=== PATIENT | male | born 1975 | race Two or more races ===

== ENCOUNTER 2017-07-20 06:08 | Emergency (ER) | payer BC, OTHER ==
[~2017-07-20] VITALS: Ht 165.1 cm; Wt 111.1 kg
[~2017-07-20 06:08] MED LIST: ASPI-1152 PO; LOSA1TAB9 PO
--- NOTE | 2017-07-20 06:17 | NUR ---
PT BIBSELF, PT AMBULATORY TO ER BED 9 PT STATES "DIZZY LIKE THE ROOM IS SPINNING SINCE LAST NIGHT; WORSE AT 0500" PT AOX3 RR EVEN AND UNLABORED. NO SOB NOTED. NAD NOTED. NO NVD AT THIS TIME. PT NOT DIAPHORETIC. PT GOWNED AND PLACED ON MONITOR. DR. HAWKINS AT BEDSIDE FOR EVAL.
[2017-07-20] MEDS ORDERED: IV NS 0.9% 1,000 ML BAG IV ONE (06:30)
[2017-07-20] MEDS ORDERED: MECLIZINE HCL 12.5 MG TABLET PO ONE (06:30)
[2017-07-20] MEDS ORDERED: LABETALOL HCL IV 100MG VIAL IV ONE (06:30)
[2017-07-20] MEDS ORDERED: LABETALOL HCL (100MG) 100 MG TABLET PO ONE (06:30)
[2017-07-20] MEDS ORDERED: ONDANSETRON HCL/PF 4 MG/2 ML VIAL IVP ONE (06:30)
[2017-07-20] MEDS ORDERED: LABETALOL HCL (100MG) 100 MG TABLET ONE (06:31)
[2017-07-20] MEDS ORDERED: ONDANSETRON HCL/PF 4 MG/2 ML VIAL ONE (06:31)
[2017-07-20] MEDS ORDERED: LABETALOL HCL IV 100MG VIAL ONE (06:31)
[2017-07-20] MEDS ORDERED: MECLIZINE HCL 25 MG TABLET ONE (06:32)
[2017-07-20 06:53] LABS: CALCIUM, SERUM 8.2 mg/dL (8.5-10.1); CARBON DIOXIDE 21 mmol/L (21-32); CHLORIDE 106 mmol/L (98-107); CREATININE 0.8 mg/dL (0.6-1.3); GLUCOSE 146 mg/dL (74-106); POTASSIUM 3.7 mmol/L (3.5-5.1); SODIUM SERUM 139 mmol/L (136-145); UREA NITROGEN, BLOOD 21 mg/dL (7-18)
--- NOTE | 2017-07-20 06:55 | NUR ---
PT TO CT.
[2017-07-20 06:58] LABS: ALANINE AMINOTRANSFERASE 41 U/L (12-78); ALBUMIN 3.4 g/dL (3.4-5.0); ALKALINE PHOSPHATASE 123 U/L (46-116); ASPARTATE AMINOTRANSFERASE 15 U/L (15-37); BILIRUBIN,TOTAL 0.3 mg/dL (0.2-1.0); TOTAL PROTEIN, SERUM 6.9 g/dL (6.4-8.2)
[2017-07-20 07:00] LABS: BASOPHILS % (AUTO) 0.6 % (0.0-2.0); HEMATOCRIT 43 % (39-51); HEMOGLOBIN 14.7 g/dL (13.5-17.5); LYMPHOCYTES # (AUTO) 2.3 /CMM (0.8-4.8); LYMPHOCYTES % (AUTO) 29.5 % (20.0-44.0); MEAN CORPUSCULAR HGB CONC 35 g/dl (31.0-36.0); MEAN CORPUSCULAR VOLUME 85 fL (80-96); MONOCYTES # (AUTO) 0.5 /CMM (0.1-1.30); MONOCYTES % (AUTO) 6.9 % (2.0-12.0); NEUTROPHILS # (AUTO) 4.6 /CMM (1.8-8.9); PLATELET COUNT (AUTO) 207 /CMM (150-450); RDW COEFFICIENT OF VARIATION 14.2 (11.5-15.0); RED BLOOD CELL COUNT(AUTO) 5.05 MIL/uL (4.5-6.0); TROPONIN I < 0.017 ng/mL (0.00-0.056); WHITE BLOOD COUNT (AUTO) 7.7 K/uL (4.3-11.0)
--- NOTE | 2017-07-20 07:00 | NUR ---
REPORT GIVEN TO SAMANTHA HALL FOR NOHEMY. PT IN CT AT THIS TIME.
--- NOTE | 2017-07-20 07:00 | NUR ---
RECEIVED REPORT FOR NOHEMY.
[2017-07-20 07:06] LABS: INR 0.96 (0.87-1.13)
--- NOTE | 2017-07-20 07:08 | NUR ---
PT RETURNED FROM CT.
[2017-07-20 07:58] VITALS: BP 126/77
--- NOTE | 2017-07-20 07:59 | NUR ---
IV removed. Catheter intact and site benign. Pressure and 4x4 applied to site. No bleeding noted. Patient discharged to home in stable condition. Written and verbal after care instructions given. Patient verbalizes understanding of instruction.
== END 2017-07-20 07:59 | disposition home or self-care (01) ==
LOC: ER 06:09
DX: R42 Dizziness and giddiness (principal); I10 Essential (primary) hypertension; Z79.82 Long term (current) use of aspirin
CPT/HCPCS: 36415; 70450-TC; 71045-TC; 80048-TC; 80076-TC; 84484-TC; 85025-TC; 85730-TC; A4606; J2405; J3490; J7030; J8597; Z7610

== ENCOUNTER 2018-03-29 15:02 | Emergency (ER) | payer BC, OTHER ==
[~2018-03-29] VITALS: Ht 165.1 cm; Wt 110.7 kg
--- NOTE | 2018-03-29 15:20 | NUR ---
PT PRESENTED TO THE ER WITH A C/O RT BACK AND LLE PAIN S/P SLIP AND FALL AT WORK. PT DENIES KO AT THIS TIME.
[2018-03-29] MEDS ORDERED: KETOROLAC TROMETHAMINE INJ 60 MG/2 ML VIAL IM ONE (15:30)
[2018-03-29] MEDS ORDERED: KETOROLAC TROMETHAMINE INJ 30 MG/ML VIAL ONE (15:39)
--- NOTE | 2018-03-29 15:42 | NUR ---
PT IS IN RADIOLOGY
--- NOTE | 2018-03-29 16:06 | NUR ---
Merna funk in [facility] - 03/29/18 at 1607 by ADAM PT'S MOTHER IS AT THE BEDSIDE.
--- NOTE | 2018-03-29 16:14 | NUR ---
PT IS REC'ING A CAM WALKER BOOT, PER DR. SKELTON. DR SKELTON IS SPEAKING TO THE PT.
[2018-03-29 16:36] VITALS: BP 134/93
== END 2018-03-29 16:37 | disposition home or self-care (01) ==
LOC: ER 15:11
DX: S92.412A Displaced fracture of proximal phalanx of left great toe, initial encounter for closed fracture (principal); S43.491A Other sprain of right shoulder joint, initial encounter; S80.212A Abrasion, left knee, initial encounter; I10 Essential (primary) hypertension; F10.10 Alcohol abuse, uncomplicated; Y90.9 Presence of alcohol in blood, level not specified; Z79.82 Long term (current) use of aspirin; W01.0XXA Fall on same level from slipping, tripping and stumbling without subsequent striking against object, initial encounter; Y93.89 Activity, other specified; Y92.89 Other specified places as the place of occurrence of the external cause; Y99.8 Other external cause status
CPT/HCPCS: 71045-TC; 73560-TC; 73630-TC; J1885

== ENCOUNTER 2018-11-21 09:20 | Outpatient (CLI) | payer BC | END 2018-11-21 23:59 | disposition home or self-care (01) | LOC: MRI 09:20 | PROVIDERS: ATTEND Legal Medicine | DX: S83.242A Other tear of medial meniscus, current injury, left knee, initial encounter (principal); M17.12 Unilateral primary osteoarthritis, left knee; I10 Essential (primary) hypertension; X58.XXXA Exposure to other specified factors, initial encounter; Y93.89 Activity, other specified; Y92.89 Other specified places as the place of occurrence of the external cause; Y99.8 Other external cause status | CPT/HCPCS: 73721-TC ==

== ENCOUNTER 2020-12-24 08:34 | Outpatient (CLI) | payer BC ==
[~2020-12-24 08:34] MED LIST changes: -ASPI-1152 PO; +ASPI-1420 PO
[2020-12-24 09:29] LABS: BASOPHILS # (AUTO) 0.1 K/uL (0.0-0.2); BASOPHILS % (AUTO) 0.7 % (0.0-2.0); EOSINOPHILS % (AUTO) 2.7 % (0.0-6.0); HEMATOCRIT 47 % (39-51); HEMOGLOBIN 15.8 g/dL (13.5-17.5); LYMPHOCYTES # (AUTO) 2.8 K/uL (0.8-4.8); MEAN CORPUSCULAR HGB CONC 34 g/dl (31.0-36.0); MEAN CORPUSCULAR VOLUME 89 fL (80-96); MONOCYTES # (AUTO) 0.6 K/uL (0.1-1.30); MONOCYTES % (AUTO) 6.1 % (2.0-12.0); NEUTROPHILS # (AUTO) 5.4 K/uL (1.8-8.9); NEUTROPHILS % (AUTO) 59.5 % (43.0-81.0); PLATELET COUNT (AUTO) 221 K/uL (150-450); RED BLOOD CELL COUNT(AUTO) 5.26 MIL/uL (4.5-6.0); WHITE BLOOD COUNT (AUTO) 9.2 K/uL (4.3-11.0)
[2020-12-24 09:40] LABS: BILIRUBIN,URINE NEGATIVE (NEGATIVE); COLOR,URINE YELLOW (YELLOW); LEUKOCYTE ESTERASE ,URINE NEGATIVE (NEGATIVE); NITRITE, URINE NEGATIVE (NEGATIVE); PROTEIN,URINE NEGATIVE (NEGATIVE); UGLUCOSE NEGATIVE (NEGATIVE); UROBILINOGEN,URINE 0.2 EU/dL (0.2)
[2020-12-24 10:33] LABS: FREE T4 (FREE THYROXINE) 1.06 ng/dL (0.76-1.46); THYROID STIMULATING HORMONE 0.896 uIU/mL (0.358-3.74); URIC ACID 9.2 mg/dL (2.6-7.2)
[2020-12-24 10:44] LABS: ALBUMIN 3.8 g/dL (3.4-5.0); BILIRUBIN,TOTAL 0.7 mg/dL (0.2-1.0); CALCIUM, SERUM 8.9 mg/dL (8.5-10.1); CREATININE 0.9 mg/dL (0.6-1.3); POTASSIUM 3.8 mmol/L (3.5-5.1); TOTAL PROTEIN, SERUM 7.7 g/dL (6.4-8.2)
== END 2020-12-24 23:59 | disposition home or self-care (01) ==
LOC: LAB 08:34
PROVIDERS: ATTEND Legal Medicine
DX: I10 Essential (primary) hypertension (principal); E11.9 Type 2 diabetes mellitus without complications; E55.9 Vitamin D deficiency, unspecified; E78.5 Hyperlipidemia, unspecified; E03.9 Hypothyroidism, unspecified; D64.9 Anemia, unspecified; Z00.00 Encounter for general adult medical examination without abnormal findings
CPT/HCPCS: 36415; 80053-TC; 80061-TC; 82306; 82607-TC; 82728-TC; 83540-TC; 84402; 84403; 84439-TC; 84443-TC; 84550-TC; 85025-TC

== ENCOUNTER 2021-02-27 20:29 | Emergency (ER) | payer BC ==
[~2021-02-27] VITALS: Ht 167.6 cm; Wt 93.0 kg
[2021-02-27 20:35] VITALS: BP 141/77
[2021-02-27] MEDS ORDERED: ACET-2605 PO (20:44)
--- NOTE | 2021-02-27 21:25 | NUR ---
Patient discharged to home in stable condition. Written and verbal after care instructions given. Patient verbalizes understanding of instruction. Pt ambulatory with a steady gait
== END 2021-02-27 21:25 | disposition home or self-care (01) ==
LOC: ER 20:30
DX: B34.9 Viral infection, unspecified (principal); Z20.822 Contact with and (suspected) exposure to COVID-19; I10 Essential (primary) hypertension; Z79.82 Long term (current) use of aspirin; Z79.899 Other long term (current) drug therapy
CPT/HCPCS: 87426; 87804 ×2; 99283; C9803; U0003

== ENCOUNTER 2021-05-30 15:28 | Emergency (ER) | payer BC, OTHER ==
[~2021-05-30] VITALS: Ht 165.1 cm; Wt 104.3 kg
[~2021-05-30 15:28] MED LIST changes: +ACET-2605 PO
--- NOTE | 2021-05-30 15:30 | NUR ---
BIB C/O SYNCOPAL EPISODE AFTER RUNNING. "AFTER RUNNING HE FELT LIGHTHEADED AND PASSED OUT." PLACED COMFORTABLY IN BED. VITALS CHECKED
--- NOTE | 2021-05-30 15:40 | NUR ---
IV CANNULA G18 INSERTED ON LEFT AC. BLOOD DRAWN AND SENT TO LAB
--- NOTE | 2021-05-30 15:55 | NUR ---
EKG DONE AT BEDSIDE. BLOOD GLUCOSE LEVEL OF 121mg
[2021-05-30 16:01] LABS: BASOPHILS # (AUTO) 0.1 K/uL (0.0-0.2); BASOPHILS % (AUTO) 0.7 % (0.0-2.0); EOSINOPHILS % (AUTO) 0.7 % (0.0-6.0); HEMATOCRIT 48 % (39-51); HEMOGLOBIN 16.3 g/dL (13.5-17.5); LYMPHOCYTES # (AUTO) 1.7 K/uL (0.8-4.8); LYMPHOCYTES % (AUTO) 13.5 % (20.0-44.0); MEAN CORPUSCULAR HGB CONC 34 g/dl (31.0-36.0); MEAN CORPUSCULAR VOLUME 87 fL (80-96); MONOCYTES # (AUTO) 0.7 K/uL (0.1-1.30); MONOCYTES % (AUTO) 5.8 % (2.0-12.0); NEUTROPHILS # (AUTO) 9.8 K/uL (1.8-8.9); NEUTROPHILS % (AUTO) 79.3 % (43.0-81.0); PLATELET COUNT (AUTO) 257 K/uL (150-450); RED BLOOD CELL COUNT(AUTO) 5.53 MIL/uL (4.5-6.0); WHITE BLOOD COUNT (AUTO) 12.3 K/uL (4.3-11.0)
[2021-05-30 16:24] LABS: ALANINE AMINOTRANSFERASE 34 U/L (12-78); ALBUMIN 4.2 g/dL (3.4-5.0); ALKALINE PHOSPHATASE 116 U/L (46-116); ASPARTATE AMINOTRANSFERASE 21 U/L (15-37); BILIRUBIN,DIRECT 0.2 mg/dL (0.0-0.2); BILIRUBIN,TOTAL 0.9 mg/dL (0.2-1.0); CALCIUM, SERUM 9.2 mg/dL (8.5-10.1); CARBON DIOXIDE 25 mmol/L (21-32); CHLORIDE 100 mmol/L (98-107); CREATININE 1.8 mg/dL (0.6-1.3); GLUCOSE 131 mg/dL (74-106); POTASSIUM 3.8 mmol/L (3.5-5.1); SODIUM SERUM 134 mmol/L (136-145); TOTAL PROTEIN, SERUM 7.9 g/dL (6.4-8.2); UREA NITROGEN, BLOOD 32 mg/dL (7-18)
[2021-05-30] MEDS ORDERED: IV NS 0.9% 1,000 ML BAG IV ONE (17:00)
--- NOTE | 2021-05-30 18:01 | NUR ---
IV CANNULA REMOVED
--- NOTE | 2021-05-30 18:02 | NUR ---
Patient discharged to home in stable condition. Written and verbal after care instructions given. Patient verbalizes understanding of instruction.
[2021-05-30 18:03] VITALS: BP 134/83
== END 2021-05-30 18:04 | disposition home or self-care (01) ==
LOC: ER 15:32
DX: E86.0 Dehydration (principal); N28.9 Disorder of kidney and ureter, unspecified; R55 Syncope and collapse; I10 Essential (primary) hypertension; Z79.899 Other long term (current) drug therapy
CPT/HCPCS: 36415; 70450; 71045; 80048; 80076; 82962; 84484; 85025; 85730; 93005 ×2; 96360; 99285; J7030

== ENCOUNTER 2021-10-22 11:14 | Inpatient (IN) | payer BC, OTHER ==
[~2021-10-22] VITALS: Ht 165.1 cm; Wt 114.8 kg
[~2021-10-22 11:14] MED LIST changes: -ACET-2605 PO; -ASPI-1420 PO
--- NOTE | 2021-10-22 11:36 | NUR ---
CAME IN FOR SOB AND CHEST DISCOMFORT X 3 DAYS, SOB WORST TODAY, ALSO C/O BLE WEAKNESS. TO ERBED 4, HOOKED TO MONITOR, CHANGED TO HOSP GOWN, WARM BLANKET PROVIDED. PATIENT AAOx 4. BREATHING EVEN AND UNLABORED. AWAITING MD MORENO
--- NOTE | 2021-10-22 12:14 | NUR ---
DR CHILEL AT BEDSIDE
--- NOTE | 2021-10-22 12:30 | NUR ---
RAPID COVID SWAB DONE AND SENT TO LAB
[2021-10-22 12:51] LABS: CALCIUM, SERUM 8.5 mg/dL (8.5-10.1); CARBON DIOXIDE 26 mmol/L (21-32); CHLORIDE 99 mmol/L (98-107); CREATININE 0.8 mg/dL (0.6-1.3); GLUCOSE 142 mg/dL (74-106); SODIUM SERUM 136 mmol/L (136-145); UREA NITROGEN, BLOOD 25 mg/dL (7-18)
[2021-10-22 12:59] LABS: BASOPHILS # (AUTO) 0.1 K/uL (0.0-0.2); BASOPHILS % (AUTO) 0.5 % (0.0-2.0); EOSINOPHILS % (AUTO) 0.2 % (0.0-6.0); HEMATOCRIT 48 % (39-51); HEMOGLOBIN 16.2 g/dL (13.5-17.5); LYMPHOCYTES # (AUTO) 1.8 K/uL (0.8-4.8); MEAN CORPUSCULAR HGB CONC 33 g/dl (31.0-36.0); MEAN CORPUSCULAR VOLUME 87 fL (80-96); MONOCYTES # (AUTO) 1.1 K/uL (0.1-1.30); MONOCYTES % (AUTO) 7.3 % (2.0-12.0); PLATELET COUNT (AUTO) 232 K/uL (150-450); RED BLOOD CELL COUNT(AUTO) 5.53 MIL/uL (4.5-6.0)
[2021-10-22 13:06] LABS: ALANINE AMINOTRANSFERASE 104 U/L (12-78); ALBUMIN 3.5 g/dL (3.4-5.0); ALKALINE PHOSPHATASE 133 U/L (46-116); ASPARTATE AMINOTRANSFERASE 23 U/L (15-37); BILIRUBIN,DIRECT 0.1 mg/dL (0.0-0.2); BILIRUBIN,TOTAL 0.5 mg/dL (0.2-1.0); TOTAL PROTEIN, SERUM 7.1 g/dL (6.4-8.2)
[2021-10-22] MEDS ORDERED: IV NS 0.9% 1,000 ML IV ONE (14:00)
--- NOTE | 2021-10-22 14:59 | NUR ---
CONTACTED DR. ZHOU TO CALL US BACK.
--- NOTE | 2021-10-22 15:40 | NUR ---
CALLED DR. ZHOU [phone] ZHOU PAGED.
[2021-10-22] MEDS ORDERED: ENOXAPARIN SODIUM 40 MG/0.4 ML DISP.SYRIN SQ SCH (17:00)
[2021-10-22] MEDS ORDERED: IV NS 0.9% 1,000 ML IV PRN (17:00)
[2021-10-22] MEDS ORDERED: ASPIRIN EC 81 MG TABLET.DR PO ONE (17:00)
[2021-10-22] MEDS ORDERED: ONDANSETRON HCL/PF 4 MG/2 ML VIAL IVP PRN (17:00)
[2021-10-22] MEDS ORDERED: NITROGLYCERIN PACKET 1 GM PACKET TOP ONE (17:00)
[2021-10-22] MEDS ORDERED: ACETAMINOPHEN 325 MG TABLET PO PRN (17:00)
[2021-10-22] MEDS ORDERED: MAG HYDROX/AL HYDROX/SIMETH 30 ML UDC PO PRN (17:00)
[2021-10-22] MEDS ORDERED: MORPHINE SULFATE INJ 2 MG/ML DISP.SYRIN IV PRN (17:00)
[2021-10-22] MEDS ORDERED: ENOXAPARIN SODIUM 40 MG/0.4 ML DISP.SYRIN SQ ONE (17:13)
[2021-10-22] MEDS ORDERED: NITROGLYCERIN PACKET 1 GM PACKET ONE (17:14)
[2021-10-22] MEDS ORDERED: ASPIRIN 81 MG TAB.CHEW ONE (17:14)
--- NOTE | 2021-10-22 19:34 | NUR ---
ENDORSEMENT GIVEN TO ANA SINGH FOR CONTINUITY OF CARE
--- NOTE | 2021-10-22 19:44 | NUR ---
ROOM 110
--- NOTE | 2021-10-22 20:19 | NUR ---
REPORT GIVEN TO CHERRY WALTERS RN FOR NOHEMY
--- NOTE | 2021-10-22 20:25 | NUR ---
[employer] NOTES RECEIVED PTS FROM ER VIA STRETCHER , REPORT GIVEN BY SAMANTHA AMANDA, PTS ON R/A SATING 96% NO SOB NO DISTRESS NOTED ,ADMITTED WITH CHEST PAIN , ON TELE MONITOR SR -90 , BODY CHECK DONE NO SKIN ISSUE NOTED . PTS ON IV HEPLOCK LEFT AC G#20 INTACT PATENT.IVF OF NS AT 75 CC/HR TOLERATING WELL . DUE MEDS GIVEN ORDERED . WILL CONTINUE TO MONITOR PTS.
--- NOTE | 2021-10-22 20:37 | NUR ---
PT TRANSFERRED TO [facility] VIA ACLS PROTOCOL. VSS.
[2021-10-22 20:59] VITALS: BP 130/80
[2021-10-22] MEDS ORDERED: ZOLPIDEM TARTRATE 5 MG TABLET PO PRN (22:00)
[2021-10-22] MEDS ORDERED: ATORVASTATIN 40 MG TABLET PO SCH (22:00)
[2021-10-22] MEDS ORDERED: MAGNESIUM HYDROXIDE 30 ML UDC PO PRN (22:00)
[2021-10-23] VITALS: BP 125/72
[2021-10-23 04:00] VITALS: BP 122/82
--- NOTE | 2021-10-23 06:48 | NUR ---
METAL TURNER NOTESMS RN CLOSING NOTE PATIENT REMAINS IN BED AWAKE, ALERT, ORIENTED X 4. V/S STABLE AFEBRILE ON R/A SATING 98% . NO SOB ,NO RESPIRATORY DISTRESS NOTED. NO C/O CHEST PAIN NOTED .ON IV FLUID OF NS @ 75 ML/HR, NO INFILTRATION NOTED FLUID INFUSING WELL HOB KEPT ELEVATED. BED LOCKED AND IN LOWEST POSITION. CALL LIGHT WITHIN REACH. WILL ENDORSE TO RN DAY SHIFT FOR CONTINUITY OF CARE.
[2021-10-23 07:24] LABS: BASOPHILS # (AUTO) 0.1 K/uL (0.0-0.2); BASOPHILS % (AUTO) 0.8 % (0.0-2.0); EOSINOPHILS % (AUTO) 0.8 % (0.0-6.0); HEMATOCRIT 44 % (39-51); HEMOGLOBIN 14.5 g/dL (13.5-17.5); LYMPHOCYTES # (AUTO) 3.6 K/uL (0.8-4.8); LYMPHOCYTES % (AUTO) 29.2 % (20.0-44.0); MEAN CORPUSCULAR HGB CONC 33 g/dl (31.0-36.0); MEAN CORPUSCULAR VOLUME 89 fL (80-96); MONOCYTES # (AUTO) 0.9 K/uL (0.1-1.30); NEUTROPHILS # (AUTO) 7.6 K/uL (1.8-8.9); NEUTROPHILS % (AUTO) 62.2 % (43.0-81.0); PLATELET COUNT (AUTO) 179 K/uL (150-450); RED BLOOD CELL COUNT(AUTO) 4.92 MIL/uL (4.5-6.0); WHITE BLOOD COUNT (AUTO) 12.2 K/uL (4.3-11.0)
--- NOTE | 2021-10-23 07:24 | NUR ---
RN OPENING NOTE RECEIVED PATIENT RESTING IN BED AWAKE, ALERT, ORIENTED X 4. ON R/A . NO SOB ,NO RESPIRATORY DISTRESS NOTED. NO C/O CHEST PAIN NOTED .ON IV FLUID OF NS @ 75 ML/HR, NO INFILTRATION NOTED FLUID INFUSING WELL HOB KEPT ELEVATED. BED LOCKED AND IN LOWEST POSITION. CALL LIGHT WITHIN REACH.
[2021-10-23] MEDS ORDERED: PANTOPRAZOLE 40 MG TABLET.DR PO SCH (07:30)
[2021-10-23 08:00] VITALS: BP 150/80
[2021-10-23 08:22] LABS: THYROID STIMULATING HORMONE 2.22 uIU/mL (0.358-3.74)
[2021-10-23 08:25] LABS: CREATININE 0.8 mg/dL (0.6-1.3); MAGNESIUM 2.1 mg/dL (1.8-2.4); PHOSPHORUS 3.8 mg/dL (2.5-4.9); POTASSIUM 3.9 mmol/L (3.5-5.1)
[2021-10-23] MEDS ORDERED: HYDROCHLOROTHIAZIDE 25 MG TABLET PO SCH (09:00)
[2021-10-23] MEDS ORDERED: LOSARTAN POTASSIUM 50 MG TABLET PO SCH (09:00)
[2021-10-23 12:00] VITALS: BP 170/97
--- NOTE | 2021-10-23 12:30 | NUR ---
RN NOTE BP NOTED TO BE ELEVATED RECHECKED INFORMED DR ZHOU RECEIVED PRN HYDRALAZINE ORDER. ORDERS FOLLOWED
[2021-10-23] MEDS ORDERED: hydrALAZINE HCL IV 20 MG VIAL IV PRN (13:00)
[2021-10-23] MEDS ORDERED: AMLODIPINE BESYLATE 5 MG TABLET PO SCH (14:00)
[2021-10-23] MEDS ORDERED: AMLO-212 PO (14:15)
[2021-10-23 14:30] VITALS: BP 149/89
--- NOTE | 2021-10-23 15:46 | NUR ---
RN NOTE PATIENT DC. DC INSTRUCTION GIVEN TO PATIENT PT IS TO RETURN ON 10/25/2021 FOR ANGIO CATH AT 1100 RX GIVEN TO PATIENT, PATIENT REMINDED TO BE NPO MIDNIGHT OF 10/24/2021. PATIENT ACCOMPANIED BY . NO FURTHER QUESTIONS
== END 2021-10-23 15:50 | disposition home or self-care (01) | DRG 305 ==
LOC: ER 11:17 → TRANSITION 18:38 → TELE1 20:06
PROVIDERS: ADMIT Legal Medicine; ATTEND Legal Medicine
DX: I16.9 Hypertensive crisis, unspecified (principal); Z68.41 Body mass index [BMI] 40.0-44.9, adult; R07.9 Chest pain, unspecified; E66.01 Morbid (severe) obesity due to excess calories; G47.33 Obstructive sleep apnea (adult) (pediatric); R74.01 Elevation of levels of liver transaminase levels; R74.8 Abnormal levels of other serum enzymes; I10 Essential (primary) hypertension; Z20.822 Contact with and (suspected) exposure to COVID-19; Z91.14 Patient's other noncompliance with medication regimen; I25.10 Atherosclerotic heart disease of native coronary artery without angina pectoris
CPT/HCPCS: 36415; 71045-TC; 76700-TC; 80048-TC; 80061-TC; 80076-TC; 83735-TC; 83880; 84100-TC; 84443-TC; 84484-TC; 85025-TC; 87081-TC; 93307-TC; C9803; G0378; J0360; J1650; J7030

== ENCOUNTER 2021-10-25 13:44 | Outpatient (CLI) | payer BC, OTHER ==
[~2021-10-25] VITALS: Ht 157.5 cm; Wt 113.4 kg
[~2021-10-25 13:44] MED LIST changes: +AMLO-212 PO
[2021-10-25] MEDS ORDERED: IV NS 0.9% 250 ML IV ONE (13:55)
[2021-10-25] MEDS ORDERED: IOHEXOL-350 100 ML VIAL IV ONE (13:55)
[2021-10-25] MEDS: METOPROLOL TARTRATE INJ 5 MG/5 ML AMPUL IVP PRN ×10 (14:05→14:50)
[2021-10-25] MEDS ORDERED: METOPROLOL TARTRATE INJ 5 MG/5 ML AMPUL ONE ×2 (14:11→14:26)
[2021-10-25] MEDS ORDERED: NITROGLYCERIN 0.4 MG/TAB BOTTLE SL ONE (14:30)
[2021-10-25 14:50] VITALS: BP 138/74
--- NOTE | 2021-10-25 14:55 | NUR ---
DC IV, gauze applied to site, Patient discharged in stable condition, patient verbalized understanding of the discharge instruction.
== END 2021-10-25 23:59 | disposition home or self-care (01) ==
LOC: CT 13:44
PROVIDERS: ATTEND Legal Medicine
DX: I10 Essential (primary) hypertension (principal)
CPT/HCPCS: 75574; J3490 ×2; J7050; Q9967

== ENCOUNTER 2021-10-28 22:06 | Emergency (ER) | payer BC, OTHER ==
[~2021-10-28] VITALS: Ht 165.1 cm; Wt 113.4 kg
--- NOTE | 2021-10-28 22:15 | NUR ---
TO ER BED 4. BIBFAMILY. C/O DIFFICULTY BREATHING, FEELS TIGHT. REPORTS THICK PHLEGM. PT IS ALERT AND ORIENTED. RR EVEN AND NON LABORED. CONNECTED TO MONITOR. AWAITING MD MORENO
--- NOTE | 2021-10-29 01:21 | NUR ---
Patient discharged to home in stable condition. Written and verbal after care instructions given. Patient verbalizes understanding of instruction.
[2021-10-29 02:04] VITALS: BP 164/99
== END 2021-10-29 02:04 | disposition home or self-care (01) ==
LOC: ER 22:06
DX: R05.9 Cough, unspecified (principal); I10 Essential (primary) hypertension; Z79.899 Other long term (current) drug therapy
CPT/HCPCS: 71045-TC

== ENCOUNTER 2021-11-05 08:54 | Outpatient (CLI) | payer BC, OTHER | END 2021-11-05 23:59 | disposition home or self-care (01) | LOC: CT 08:54 | PROVIDERS: ATTEND Legal Medicine | DX: J32.0 Chronic maxillary sinusitis (principal); R22.1 Localized swelling, mass and lump, neck | CPT/HCPCS: 70490-TC ==

== ENCOUNTER 2021-11-22 08:50 | Outpatient (CLI) | payer BC, OTHER | END 2021-11-22 23:59 | disposition home or self-care (01) | LOC: RAD 08:50 | PROVIDERS: ATTEND Legal Medicine | DX: M13.861 Other specified arthritis, right knee (principal); M25.461 Effusion, right knee; M25.561 Pain in right knee | CPT/HCPCS: 73562 ==

== ENCOUNTER 2023-12-10 07:43 | Emergency (ER) | payer BC, OTHER ==
[~2023-12-10] VITALS: Ht 165.1 cm; Wt 99.8 kg
[2023-12-10] MEDS ORDERED: MORPHINE SULFATE INJ 4 MG/ML DISP.SYRIN ONE (08:06)
[2023-12-10] MEDS ORDERED: ONDANSETRON HCL/PF 4 MG/2 ML VIAL ONE (08:06)
[2023-12-10 08:09] LABS: APPEARANCE,URINE CLEAR (CLEAR); BILIRUBIN,URINE NEGATIVE (NEGATIVE); BLOOD, URINE NEGATIVE Ery/uL (NEGATIVE); COLOR,URINE YELLOW (YELLOW); KETONES,URINE NEGATIVE (NEGATIVE); LEUKOCYTE ESTERASE ,URINE NEGATIVE (NEGATIVE); NITRITE, URINE NEGATIVE (NEGATIVE); PROTEIN,URINE NEGATIVE (NEGATIVE); UGLUCOSE NEGATIVE (NEGATIVE); UROBILINOGEN,URINE 0.2 EU/dL (0.2)
[2023-12-10] MEDS: ONDANSETRON HCL/PF 4 MG/2 ML VIAL IVP ONE (08:10)
[2023-12-10] MEDS: MORPHINE SULFATE INJ 2 MG/ML DISP.SYRIN IV ONE (08:16)
[2023-12-10 08:25] LABS: BASOPHILS # (AUTO) 0.1 K/uL (0.0-0.2); BASOPHILS % (AUTO) 1.1 % (0.0-2.0); EOSINOPHILS # (AUTO) 0.3 K/uL (0.0-0.7); EOSINOPHILS % (AUTO) 3.2 % (0.0-6.0); HEMATOCRIT 45 % (39-51); HEMOGLOBIN 15.4 g/dL (13.5-17.5); LYMPHOCYTES # (AUTO) 2.5 K/uL (0.8-4.8); LYMPHOCYTES % (AUTO) 31.3 % (20.0-44.0); MEAN CORPUSCULAR HEMOGLOBIN 29 PG (26.0-33.0); MEAN CORPUSCULAR HGB CONC 34 g/dl (31.0-36.0); MEAN CORPUSCULAR VOLUME 85 fL (80-96); MONOCYTES # (AUTO) 0.5 K/uL (0.1-1.30); MONOCYTES % (AUTO) 5.8 % (2.0-12.0); NEUTROPHILS # (AUTO) 4.6 K/uL (1.8-8.9); NEUTROPHILS % (AUTO) 58.6 % (43.0-81.0); PLATELET COUNT (AUTO) 223 K/uL (150-450); RED BLOOD CELL COUNT(AUTO) 5.28 MIL/uL (4.5-6.0); RED CELL DISTRIBUTION WIDTH 14.4 % (11.5-15.0); WHITE BLOOD COUNT (AUTO) 7.9 K/uL (4.3-11.0)
[2023-12-10 08:33] LABS: CALCIUM, SERUM 8.6 mg/dL (8.5-10.1); CREATININE 0.9 mg/dL (0.6-1.3); POTASSIUM 4.2 mmol/L (3.5-5.1)
[2023-12-10 08:40] LABS: ALBUMIN 3.4 g/dL (3.4-5.0); BILIRUBIN,DIRECT 0.1 mg/dL (0.0-0.2); BILIRUBIN,TOTAL 0.3 mg/dL (0.2-1.0); TOTAL PROTEIN, SERUM 7.1 g/dL (6.4-8.2)
[2023-12-10] MEDS ORDERED: CYCL5TAB PO (09:16)
[2023-12-10] MEDS ORDERED: NAPR500T6 PO (09:16)
[2023-12-10] MEDS ORDERED: TYL2T PO (09:16)
[2023-12-10] MEDS ORDERED: CYCLOBENZAPRINE 10 MG TABLET ONE (09:17)
[2023-12-10] MEDS ORDERED: KETOROLAC TROMETHAMINE INJ 30 MG/ML VIAL ONE (09:17)
[2023-12-10] MEDS: CYCLOBENZAPRINE 10 MG TABLET PO ONE (09:24)
[2023-12-10] MEDS: KETOROLAC TROMETHAMINE INJ 30 MG/ML VIAL IV ONE (09:24)
[2023-12-10 09:29] VITALS: BP 138/86; TEMP 98.2; O2SAT 100
== END 2023-12-10 09:31 | disposition home or self-care (01) ==
LOC: ER 07:45
DX: S33.5XXA Sprain of ligaments of lumbar spine, initial encounter (principal); I10 Essential (primary) hypertension; Z79.899 Other long term (current) drug therapy; X58.XXXA Exposure to other specified factors, initial encounter; Y93.89 Activity, other specified; Y92.89 Other specified places as the place of occurrence of the external cause; Y99.8 Other external cause status
CPT/HCPCS: 99285; 74176; 96374; 96375; 85025; 80048; 83690; 80076; 81003; 36415; J2270; J1885; J2405